=== PATIENT | male | born 1985 | race Caucasian/White ===

== ENCOUNTER 2022-11-30 11:38 | Emergency (ER) | payer SELFPAY ==
[~2022-11-30] VITALS: Ht 152.4 cm; Wt 65.8 kg
[2022-11-30 11:40] VITALS: BP 114/74
--- NOTE | 2022-11-30 11:43 | NUR ---
PT AMBULATORY TO BED 07
[2022-11-30] MEDS ORDERED: MELA5SGL PO (12:23)
[2022-11-30] MEDS ORDERED: DIPH25TA53 PO (12:23)
--- NOTE | 2022-11-30 12:36 | NUR ---
Patient discharged with v/s stable. Written and verbal after care instructions given and explained. Patient alert, oriented and verbalized understanding of instructions. Ambulatory with steady gait. All questions addressed prior to discharge. ID band removed. Patient advised to follow up with PMD. Rx of BENADRYL, MELATONIN given. Patient educated on indication of medication including possible reaction and side effects. Opportunity to ask questions provided and answered.
== END 2022-11-30 12:36 | disposition home or self-care (01) ==
LOC: MED 11:38
DX: G47.00 Insomnia, unspecified (principal); Z79.899 Other long term (current) drug therapy
CPT/HCPCS: 99282